=== PATIENT | female | born 1975 | race Caucasian/White ===

== ENCOUNTER 2021-12-04 09:37 | Outpatient (CLI) | payer BC, SELFPAY ==
[2021-12-04 15:23] LABS: Albumin* 4.3 g/dL (3.3-5.0); Chloride* 103 mmol/L (96-114); Potassium* 4.5 mmol/L (3.6-5.1); Sodium* 140 mmol/L (135-149)
[2021-12-04 15:25] LABS: Cholesterol* 141 mg/dL (90-199)
[2021-12-04 15:26] LABS: Alanine Aminotransferase* 22 U/L (4-35); Alkaline Phosphatase* 89 U/L (40-150); Aspartate Amino Transferase* 19 U/L (12-35); Bilirubin Total* 0.6 mg/dL (0.1-1.5); Blood Urea Nitrogen* 13 mg/dL (5-24); Carbon Dioxide* 26 mmol/L (20-32); Creatinine* 0.9 mg/dL (0.5-1.5); Estimated Glomerular Filt Rate 80 ml/min; Glucose* 98 mg/dL (60-115); HDL Cholesterol* 30 mg/dL (>=50); LDL Cholesterol Calculated 65 mg/dL (<100); Total Protein* 6.8 g/dL (6.0-8.3); Triglycerides* 229 mg/dL (40-149)
== END 2021-12-04 09:38 | disposition home or self-care (01) ==
PROVIDERS: PCP Physician Assistant Medical; Visit Provider Physician Assistant Medical
DX: Z01.419 Encounter for gynecological examination (general) (routine) without abnormal findings (principal); Z13.6 Encounter for screening for cardiovascular disorders; Z13.29 Encounter for screening for other suspected endocrine disorder
CPT/HCPCS: 80053; 80061; 84443

== ENCOUNTER 2021-12-21 13:10 | Outpatient (CLI) | payer BC, SELFPAY ==
--- NOTE | 2021-12-21 13:20 | CRLHL7_ITS ---
For Patients: As a result of the Cures Act, medical imaging exams and procedure reports are released immediately into your electronic medical record. You may view this report before your referring provider. If you have questions, please contact your health care provider. BILATERAL SCREENING MAMMOGRAM WITH COMPUTER-AIDED DETECTION AND TOMOSYNTHESIS TECHNIQUE: CC and MLO views were obtained. These mammographic images have been obtained using full-field digital technique. These mammographic images were interpreted with the benefit of computer-aided detection. Breast Tomosynthesis was used in this interpretation. COMPARISON FILM: 07/21/20, 04/09/19, 03/04/18. FINDINGS: There are scattered areas of fibroglandular density. IMPRESSION: There is no radiographic evidence for malignancy. ASSESSMENT: BI-RADS Category 1: Negative RECOMMENDATION: Routine screening mammogram in 1 year. A lay language report of this examination will be provided to the patient. Cesilia Granados M.D. Diagnostic/Breast Radiologist [email or web address] HARSHAL/venita/hussein PT/Dictated by: Cesilia Granados MD @ 12/24/2021 8:48:00 AM JENNA/Dictated by: Cesilia Granados MD @ 12/24/2021 8:48:00 AM (Electronically Signed)
== END 2021-12-21 13:11 | disposition home or self-care (01) ==
LOC: MAMMO 13:10
PROVIDERS: PCP Physician Assistant Medical; Visit Provider Physician Assistant Medical
DX: Z12.31 Encounter for screening mammogram for malignant neoplasm of breast (principal)
CPT/HCPCS: 77063; 77067

== ENCOUNTER 2021-12-25 08:09 | Outpatient (CLI) | payer BC, SELFPAY | END 2021-12-25 08:10 | disposition home or self-care (01) | LOC: OP CLINIC 08:09 | PROVIDERS: PCP Physician Assistant Medical; Visit Provider Surgery | DX: Z12.11 Encounter for screening for malignant neoplasm of colon (principal); K57.30 Diverticulosis of large intestine without perforation or abscess without bleeding | CPT/HCPCS: 45378; 99153; J2250; J3010 ==

== ENCOUNTER 2022-12-11 08:01 | Outpatient (CLI) | payer BC, SELFPAY | END 2022-12-11 08:02 | disposition home or self-care (01) | PROVIDERS: PCP Physician Assistant Medical; Visit Provider Physician Assistant Medical | DX: Z00.00 Encounter for general adult medical examination without abnormal findings (principal); E55.9 Vitamin D deficiency, unspecified; E66.9 Obesity, unspecified; Z13.6 Encounter for screening for cardiovascular disorders; Z13.9 Encounter for screening, unspecified | CPT/HCPCS: 80053; 80061; 82306; 84443 ==

== ENCOUNTER 2024-03-09 09:58 | Outpatient (CLI) | payer BC, SELFPAY ==
[2024-03-12 02:44] LABS: HPV Source Endocervical; HPV, High Risk by TMA Not Detected
== END 2024-03-09 09:59 | disposition home or self-care (01) ==
PROVIDERS: PCP Physician Assistant Medical; Visit Provider Family Medicine
DX: N88.8 Other specified noninflammatory disorders of cervix uteri (principal); N95.1 Menopausal and female climacteric states; E55.9 Vitamin D deficiency, unspecified; E66.9 Obesity, unspecified; Z12.4 Encounter for screening for malignant neoplasm of cervix; Z13.6 Encounter for screening for cardiovascular disorders; Z13.1 Encounter for screening for diabetes mellitus; Z11.59 Encounter for screening for other viral diseases
CPT/HCPCS: 80053; 80061; 82306; 83001; 86803; 87624; 87625; 88141; 88142

== ENCOUNTER 2024-04-14 16:45 | Outpatient (RCR) | payer BC, SELFPAY ==
--- OUTSIDE RECORDS SUMMARY | 2024-03-25 09:30 | XMS_ITS | Clinical Summary ---
Author Organization [facility] Address [address] [place] [address] Care Team Providers Care Content Publisher Name Role Phone Clinic, [facility] Primary Care Provider Ari Mcdonald DPM Unavailable [phone] Allergies No known active allergies Medications Medication Sig Dispense Quantity Refills Last Filled Start D ate End Date Status ASPIRIN PO Active Active Problems No known active problems Family History Medical History Relation Comments Diabetes Maternal Grandmother Circulatory Mother blood thinners Depression Mother anxiety disorder Hypertension Paternal Grandfather Hypertension Paternal Grandmother Relation Status Comments Maternal Grandmother Mother Paternal Grandfather Paternal Grandmother Social History Tobacco Use Types Packs/Day Years Used Date Smoking Tobacco: Never Alcohol Use Standard Drinks/Week Comments No 0 (1 standard drink = 0.6 oz pur e alcohol) occasional PHQ-2 Answer Date Recorded PHQ-2 Score 0 03/21/2023 Adolescent Education Answer Date Record ed Getting School Help Needed Not on file 03/20 Comments Unknown Sex and Gender Information Value Date Recorded Sex Assigned at Not on file Legal Sex Female 4:29 AM DIRECTOR OF USER EXPERIENCE Gender Identity Not on file Sexual Orientation Not on file Last Filed Vital Signs Vital Sign Reading Time Taken Comments Blood Pressure 115/74 03/21/2023 7:26 AM DIRECTOR OF USER EXPERIENCE Pulse 60 02/23/2004 3:47 PM DIRECTOR OF USER EXPERIENCE Temperature 36.9 C (98.4 F) 02/23/2004 3:47 PM DIRECTOR OF USER EXPERIENCE Respiratory Rate 12 02/23/2004 3:47 PM DIRECTOR OF USER EXPERIENCE Oxygen Saturation - - Inhaled Oxygen Concentration - - Weight 113.9 kg (251 lb) 03/21/2023 7:26 AM DIRECTOR OF USER EXPERIENCE Height 180.3 cm (5' 11) 12/05/2015 8:25 AM CDT Body Mass Index 35.01 12/05/2015 8:25 AM CDT Plan of Treatment Health Maintenance Due Date Last Done Comments ADVANCE CARE PLANNING 1975 ANNUAL REVIEW OF HM ORDERS 1975 CT COLONOGRAPHY 1975 FIT 1975 FLEX SIG 1975 GLUCOSE 1975 MAMMO SCREENING 1975 sDNA (Cologuard) 1975 COLONOSCOPY 08/16/1985 COLORECTAL CANCER SCREENING 08/16/1985 HIV SCREENING 08/16/1990 HEPATITIS C SCREENING 08/16/1993 HEPATITIS B IMMUNIZATION (1 of 3 - 19+ 3-dose series) 08/16/1994 LIPID 2015 PAP 01/29/2021 01/29/2018, 01/29/2018 PHQ-2 (once per calendar year) 2023 03/21/2023 COVID-19 Vaccine (4 - 2023-2 5 season) 2023 05/08/2021, 08/11/2020, 07/21/2020 INFLUENZA VACCINE (#1) 2023 YEARLY PREVENTIVE VISIT 12/12/2023 12/11/2022 DTAP/TDAP/TD IMMUNIZATION (3 - Td or Tdap) 09/03/2027 09/02/2017, 09/11/2009 RSV VACCINE (1 - 1-dose 75+ series) 08/16/2050 HPV IMMUNIZATION Aged Out No longer e ligible based on patient's age to complete this topic MENINGITIS IMMUNIZATION Aged Out No l onger eligible based on patient's age to complete this topic Pneumococcal Vaccine: Pediatrics (0 to 5 Years) and At-Risk Patients (6 to 49 Years) Aged Out No longer eligible b ased on patient's age to complete this topic RSV MONOCLONAL ANTIBODY Aged Out No l onger eligible based on patient's age to complete this topic Insurance BCBS OUT OF STATE BCBS OUT OF STATE Care Teams Content Publisher Relationship Specialty Start Date End Date [facility], [facility] [address] [place] [address] PCP - General 03/21/23 Ari Mcdonald DPM [phone] [facility] [address] [place] [address] Assigned Musculoskeletal Provider 03/29/23
--- OUTSIDE RECORDS SUMMARY | 2024-03-25 09:30 | XMS_ITS | Referral Summary ---
Author Organization [facility] Address [address] [place] [address] Care Team Providers Care Director [employer] Name Role Phone [facility] Primary Care Provider Ari Mcdonald DPM Unavailable [phone] Allergies No known active allergies Medications Medication Sig Dispense Quantity Refills Last Filled Start D ate End Date Status ASPIRIN PO Active Active Problems No known active problems Social History Tobacco Use Types Packs/Day Years [...] on file Legal Sex Female 4:29 AM SUPERVISOR ENROBING Gender Identity Not on file Sexual Orientation Not on file Last Filed Vital Signs Vital Sign Reading Time Taken Comments Blood Pressure 115/74 03/21/2023 7:26 AM SUPERVISOR ENROBING Pulse 60 02/23/2004 3:47 PM SUPERVISOR ENROBING Temperature 36.9 C (98.4 F) 02/23/2004 3:47 PM SUPERVISOR ENROBING Respiratory Rate 12 02/23/2004 3:47 PM SUPERVISOR ENROBING Oxygen Saturation - - Inhaled Oxygen Concentration - - Weight 113.9 kg (251 lb) 03/21/2023 7:26 AM SUPERVISOR ENROBING Height 180.3 cm (5' 11) 12/05/2015 8:25 AM CDT Body Mass Index 35.01 12/05/2015 8:25 AM CDT Plan of Treatment Not on file Insurance BCBS OUT OF STATE BCBS [facility] OF [facility] Care Teams Director [employer] Relationship Specialty Start Date End Date Clinic, [address] [address] PCP - General 03/21/23 Ari Mcdonald DPM [phone] [address] Assigned Musculoskeletal Provider 03/29/23
--- OUTSIDE RECORDS SUMMARY | 2024-03-25 09:30 | XMS_ITS | Clinical Summary ---
Author Organization [employer] [facility] Address [place], [place] [address] Care Team Providers Care Candlemaking Laborer Name Role Phone Pcp, No Primary Care Provider Unavailabl e Allergies No known active allergies Medications * This document contains information received from the source organization and may not represent a complete record from that organization. No known medications Active Problems Problem Noted Date Diagnosed Date GERD (gastroesophageal reflux disease) Overview (09/25/2008): EGD 08/2008 normal Immunizations Name Administration Dates Next Due Hepatitis A (Adult) 09/02/2017 Tdap 09/02/2017 Typhoid (injectable) 09/02/2017 Yellow Fever 09/02/2017 Family History Medical History Relation Name Comments Psychiatric illness Mother Cancer Paternal Grandfather lung ca ncer, smoker Hypertension Paternal Grandfather Hypertension Paternal Grandmother Relation Name Status Comments Mother Paternal Grandfather Paternal Grandmother Social History Tobacco Use Types Packs/Day Years Used Date Smoking Tobacco: Never Smokeless Tobacco: Never Alcohol Use Standard Drinks/Week Comments No 0 (1 standard drink = 0.6 oz pur e alcohol) socailly Comments Unknown Sex and Gender Information Value Date Recorded Sex Assigned at Not on file Legal Sex Female 7:35 AM CLAM GROWER Gender Identity Not on file Sexual Orientation Not on file Obstetrics History Last Filed Vital Signs Vital Sign Reading Time Taken Comments Blood Pressure 112/72 09/02/2017 10:17 AM CDT Pulse 81 09/02/2017 10:17 AM CDT Temperature - - Respiratory Rate - - Oxygen Saturation 99% 09/22/2008 9:17 AM CDT Inhaled Oxygen Concentration - - Weight 121 kg (266 lb 12.1 oz) 09/02/2017 10:17 AM CDT Height - - Body Mass Index - - Plan of Treatment Health Maintenance Due Date Last Done Comments Depression screening for age 12+ 1987 HIV for age 15-65 08/16/1990 BMI (ht and wt on same day) for age 18+ 08/16/1993 Hepatitis C screening for age 18-79 08/16/1993 Colonoscopy through age 75 08/16/2020 Lipids for age 45-75 08/16/2020 05/17/2008 Mammogram for age 45-75 08/16/2020 Pap test for age 21-65 01/29/2021 8, 01/29/2018, 08/01/2014, Additional history exists COVID-19 vaccine series (2023- season) 2023 Influenza for age 9-49 11/23/2023 Tetanus booster 09/03/2027 09/02/2017 Tdap Completed 09/02/2017 Pneumococcal series for age 6-49 Aged Out No longer eligible based on patient's age to complete this topic Procedures Procedure Name Priority Date/Time Associated Diagnosis Comments CAMPAIGN MANAGEMENT SPECIALIST THIN PREP PAP SCREEN IMAGED Routine 01/29/2018 8:30 AM CLAM GROWER LIPID PANEL Routine 05/17/2008 11:23 AM CLAM GROWER Screening Cholesterol Level from Last 3 Months or Most Recently Relevant to Health Maintenance Results * CAMPAIGN MANAGEMENT SPECIALIST THIN PREP PAP SCREEN IMAGED (01/29/2018 8:30 AM CLAM GROWER) Case Report Gynecologic Cytology Report Case: [id number] Authorizing Provider: Beatriz Pichardo PA-C Collected: 01/29/2018 0830 First Screen: Cheryl Guo Received: 01/30/2018 1123 Specimen: CAMPAIGN MANAGEMENT SPECIALIST ThinPrep Vial Screening, Cervical/Vaginal 02/08/2018 8:04 AM CLAM GROWER [facility] INTERPRETATION/ RESULT NEGATIVE FOR INTRAEPITHELIAL LESION OR MALIGNANCY (NIL) (none) 02/08/2018 8:04 AM CLAM GROWER [facility] IMEN ADEQUACY Satisfactory for evaluation Endocervical component present 02/08/2018 8:04 AM [facility] LAB[facility] HPV REQUEST HPV and PAP 02/08/2018 8:[address] [facility] Automated Review Successful 02/08/2018 8:[address] [facility] Comment:Specimen processed s uccessfully by automated baker paint device, ThinPrep Imaging System, [employer] ANCILLARY TESTING CAMPAIGN MANAGEMENT SPECIALIST HPV Ordered, Please see separate report 02/08/2018 8:[address] [facility] Note The pap test is a screening technique, not a diagnostic procedure. It is used primarily to screen for squamous cancers and precursor lesions. Published studies have shown that it is subject to both false negative and false positive results. The pap test should not be used as the sole means to diagnose or exclude pre-malignant and malignant lesions. Cytology is screened and interpreted at [facility] - [address], [place] [address] and [facility] - [address]; [place] [address] and [facility] - [address]; [place] [address] and [facility] [address]; [place] [address] 02/08/2018 8:04 AM [facility] Other (Cervical/Vagina l) 01/29/2018 8:30 AM CLAM GROWER 01/30/2018 11:23 AM CLAM GROWER us Beatriz Pichardo PA-C PATHOLOGY/CYTOLOGY Final Resu lt [facility] [address] [place] [address], [place] * (ABNORMAL) LIPID PANEL (05/17/2008 11:23 AM CLAM GROWER) CHOLESTEROL,TOTAL 116 110 - 199 mg/dL [facility] TRIGLYCERIDES 143 40 - 149 mg/dL [facility] HDL CHOLESTEROL 38(L) >40 mg/dL [facility] CHOL/HDL RATIO 3.05 <4.51 [facility] LDL CHOLESTEROL 49 <131 mg/dL [facility] PATIENT STATUS Fasting [facility] Blood specimen (specimen) BLOOD SPECIMEN / Unknown 05/17/2008 11:23 AM CLAM GROWER 05/17/2008 11:21 AM CLAM GROWER us Sonya Burt MD CHEMISTRY Final Result [facility] INTERNAL ZIP [address] [address] from Last 3 Months or Most Recently Relevant to Health Maintenance Insurance [place] Care Teams Candlemaking Laborer Relationship Specialty Start Date End Date Pcp, No . PCP - General 09/02/17
--- OUTSIDE RECORDS SUMMARY | 2024-03-25 09:30 | XMS_ITS | Encounter Summary ---
Author Organization [address] [address] Care Team Providers Care Attendant Camp[employer] Name Role Phone [facility] Primary Care Provider Ari Mcdonald DPM Unavailable [phone] Encounter Details Date Type Department Care Team (Late st Contact Info) Description 03/21/[address] [facility] [address] [facility] [address] [place] [address] Ari Mcdonald DPM [phone] [facility] [address] [place] [address] Social History Tobacco Use Types Packs/Day Years [...] on file Legal Sex Female 4:29 AM BRICKLAYER SUPERVISOR Gender Identity Not on file Sexual Orientation Not on file documented as of this encounter Plan of Treatment Not on file documented as of this encounter Visit Diagnoses Not on filedocumented in this encounter Care Teams Attendant Campground Relationship Specialty Start Date End Date [facility] [address] [place], [place] [id number] PCP - General 03/21/23 Ari Mcdonald DPM [phone] [address] Assigned Musculoskeletal Provider 03/29/23 documented as of this encounter
== END 2024-08-12 23:59 | disposition home or self-care (01) ==
PROVIDERS: PCP Physician Assistant Medical; Visit Provider Physician Assistant Medical
DX: M79.2 Neuralgia and neuritis, unspecified (principal); Z51.89 Encounter for other specified aftercare
CPT/HCPCS: 97012; 97110; 97140; 97161

== ENCOUNTER 2024-06-04 11:24 | Outpatient (CLI) | payer BC, SELFPAY ==
--- NOTE | 2024-06-04 11:30 | CRLHL7_ITS ---
For Patients: As a result of the Century Cures Act, medical imaging exams and procedure reports are released immediately into your electronic medical record. You may view this report before your referring provider. If you have questions, please contact your health care provider. BILATERAL SCREENING MAMMOGRAM WITH COMPUTER-AIDED DETECTION AND TOMOSYNTHESIS TECHNIQUE: CC and MLO views were obtained. These mammographic images have been obtained using full-field digital technique. These mammographic images were interpreted with the benefit of computer-aided detection. Breast Tomosynthesis was used in this interpretation. COMPARISON FILM: 12/21/21, 07/21/20, 04/09/19. FINDINGS: There are scattered areas of fibroglandular density. IMPRESSION: There is no radiographic evidence for malignancy. ASSESSMENT: BI-RADS Category 1: Negative RECOMMENDATION: Routine screening mammogram in 1 year. A lay language report of this examination will be provided to the patient. Kvng Reeves M.D. Diagnostic Radiologist [email or web address] SP/Dictated by: Kvng Reeves MD @ 06/07/2024 8:47:00 AM (Electronically Signed)
== END 2024-06-04 11:25 | disposition home or self-care (01) ==
LOC: MAMMO 11:25
PROVIDERS: PCP Physician Assistant Medical; Visit Provider Family Medicine
DX: Z12.31 Encounter for screening mammogram for malignant neoplasm of breast (principal)
CPT/HCPCS: 77063; 77067

== ENCOUNTER 2025-03-14 15:04 | Outpatient (CLI) | payer BC, SELFPAY | END 2025-03-14 15:05 | disposition home or self-care (01) | PROVIDERS: PCP Physician Assistant Medical; Visit Provider Family Medicine | DX: Z00.00 Encounter for general adult medical examination without abnormal findings (principal); E55.9 Vitamin D deficiency, unspecified | CPT/HCPCS: 80053; 80061; 82306 ==